=== PATIENT | male | born 1950 ===

== ENCOUNTER 2024-04-28 09:32 | Inpatient (IN) | payer MEDICARE, MEDICAID ==
[~2024-04-28] VITALS: Ht 180.3 cm; Wt 63.6 kg
[2024-04-28 11:07] LABS: BASOPHILS % (AUTO) 0.5 % (0.0-2.0); EOSINOPHILS % (AUTO) 2.8 % (1.0-6.0); HEMATOCRIT 32.9 % (41-53); HEMOGLOBIN 10.7 g/dL (13.5-17.5); LYMPHOCYTES # (AUTO) 0.5 K/uL (1.0-4.8); LYMPHOCYTES % (AUTO) 8.2 % (22.0-44.0); MEAN CORPUSCULAR HEMOGLOBIN 30.8 pg (26.0-34.0); MEAN CORPUSCULAR HGB CONC 32.5 G/dL (31.0-37.0); MEAN CORPUSCULAR VOLUME 95 fL (80-100); MONOCYTES # (AUTO) 0.5 K/uL (0.1-1.0); MONOCYTES % (AUTO) 7.6 % (2.0-9.0); NEUTROPHILS # (AUTO) 4.9 K/uL (1.8-7.7); NEUTROPHILS % (AUTO) 80.9 % (40.0-70.0); PLATELET COUNT (AUTO) 243 K/uL (150-450); RED BLOOD CELL COUNT(AUTO) 3.48 MIL/uL (4.50-5.90); RED CELL DISTRIBUTION WIDTH 15.5 % (11.5-14.5); WHITE BLOOD COUNT (AUTO) 6.1 K/uL (4.5-11.0)
[2024-04-28 11:08] LABS: CALCIUM, TOTAL 9.9 mg/dL (8.8-10.5); CREATININE 2.12 mg/dL (0.60-1.30); POTASSIUM 5.3 mmol/L (3.5-5.1)
[2024-04-28 11:22] LABS: ALBUMIN 3.1 g/dL (3.4-5.0); BILIRUBIN,DIRECT 0.1 mg/dL (0.00-0.20); BILIRUBIN,TOTAL 0.5 mg/dL (0.1-1.0); TOTAL PROTEIN, SERUM 6.8 g/dL (6.4-8.2)
[2024-04-28 11:22] LABS: APPEARANCE,URINE TURBID (CLEAR); BILIRUBIN,URINE NEGATIVE (NEGATIVE); COLOR,URINE YELLOW (YELLOW); GLUCOSE, URINE (UA) 150-200 mg/dL (NEGATIVE); KETONES,URINE NEGATIVE (NEGATIVE); LEUKOCYTE ESTERASE ,URINE LARGE (NEGATIVE); NITRATE,URINE POSITIVE (NEGATIVE); OCCULT BLOOD,URINE LARGE (NEGATIVE); PH,URINE 8.5 (5.0-8.0); PROTEIN,URINE 100-200,SEE CONFIRM mg/dL (NEGATIVE); SPECIFIC GRAVITIY, URINE 1.012 (1.003-1.030); UROBILINOGEN,URINE <=1.0 mg/dL (<=1.0)
[2024-04-28 12:01] LABS: SULFOSALICYLIC ACID,URINE 2+ (Negative)
[2024-04-28 12:02] LABS: BACTERIA,URINE Many /HPF (None Seen); RBC,URINE >100 /HPF (0-2); TRIPLE PHOSPHATE CRYSTAL,UR Many /LPF (None Seen); WBC,URINE 26-50 /HPF (0-5)
[2024-04-28] MEDS: CefTRIAXone 1 GM/DEXTROSE 50 ML IV ONE (12:25)
[2024-04-28] MEDS: DiphenhydrAMINE HCL 50 MG/ML VIAL IVP ONE (13:08)
[2024-04-28] MEDS ORDERED: ACETAMINOPHEN 325 MG TABLET PO PRN (14:30)
[2024-04-28] MEDS ORDERED: MAGNESIUM HYDROXIDE SUSPENSION 30 ML UDCUP PO PRN (14:30)
[2024-04-28] MEDS ORDERED: ONDANSETRON HCL 4 MG/2 ML VIAL IVP PRN (14:30)
[2024-04-28] MEDS ORDERED: BISACODYL 10 MG RECTAL RECTAL SUPPOSITORY PR PRN (14:30)
[2024-04-28] MEDS ORDERED: DEXTROSE 50%-WATER 25 GM/50 ML SYRINGE IVP PRN (14:45)
[2024-04-28] MEDS: HEPARIN SODIUM,PORCINE 5,000 UNITS/ML VIAL SQ SCH (15:28)
[2024-04-28 18:14] VITALS: BP 157/93; PULSE 73; RESP 20; TEMP 99.1; O2SAT 99
[2024-04-28 18:25] VITALS: BP 157/93; PULSE 73; RESP 20; TEMP 99.1; O2SAT 99
[2024-04-28 19:24] VITALS: BP 132/64; PULSE 74; RESP 20; TEMP 98.5; O2SAT 97
[2024-04-28] MEDS: DOCUSATE SODIUM 100 MG CAPSULE PO SCH (20:39)
[2024-04-28] MEDS: INSULIN LISPRO 100 UNITS/ML SQ PRN (20:43)
[2024-04-28 21:00] LABS: GLUCOMETER DEV NAME(LOC) 6S.2; GLUCOSE,POINT OF CARE 223 MG/DL (70-110)
[2024-04-29 03:06] VITALS: BP 136/79; PULSE 73; RESP 18; TEMP 98.3; O2SAT 97
[2024-04-29 06:46] LABS: BASOPHILS % (AUTO) 0.2 % (0.0-2.0); EOSINOPHILS % (AUTO) 11.3 % (1.0-6.0); HEMATOCRIT 33.2 % (41-53); LYMPHOCYTES # (AUTO) 1.7 K/uL (1.0-4.8); LYMPHOCYTES % (AUTO) 25.5 % (22.0-44.0); MEAN CORPUSCULAR HEMOGLOBIN 31.4 pg (26.0-34.0); MEAN CORPUSCULAR VOLUME 95 fL (80-100); MONOCYTES # (AUTO) 0.8 K/uL (0.1-1.0); MONOCYTES % (AUTO) 11.4 % (2.0-9.0); NEUTROPHILS # (AUTO) 3.5 K/uL (1.8-7.7); NEUTROPHILS % (AUTO) 51.6 % (40.0-70.0); PLATELET COUNT (AUTO) 224 K/uL (150-450); RED CELL DISTRIBUTION WIDTH 15.9 % (11.5-14.5); WHITE BLOOD COUNT (AUTO) 6.8 K/uL (4.5-11.0)
[2024-04-29 06:55] LABS: GLUCOMETER DEV NAME(LOC) 6S.2; GLUCOSE,POINT OF CARE 181 MG/DL (70-110)
[2024-04-29 07:01] LABS: CALCIUM, TOTAL 9.2 mg/dL (8.8-10.5); CREATININE 1.67 mg/dL (0.60-1.30)
[2024-04-29 08:05] VITALS: BP 144/83; PULSE 82; RESP 19; TEMP 98.4; O2SAT 98
[2024-04-29] MEDS: PANTOPRAZOLE SODIUM 40 MG DR TABLET PO SCH (08:27)
[2024-04-29] MEDS ORDERED: CefTRIAXone 1 GM/DEXTROSE 50 ML IV SCH (12:00)
[2024-04-29] MEDS: INSULIN GLARGINE,HUM.REC.ANLOG 100 UNITS/ML SQ SCH (12:15)
[2024-04-29 13:15] LABS: GLUCOMETER DEV NAME(LOC) 6S.2; GLUCOSE,POINT OF CARE 186 MG/DL (70-110)
[2024-04-29] MEDS: CefTAZidime PENTAHYDRATE 1 GM in DEXTROSE 5%-WATER 50 ML IV SCH (13:19)
[2024-04-29] MEDS: AMPICILLIN SODIUM 1 GM/NS 50 ML IV SCH (14:32)
[2024-04-29 16:15] VITALS: BP 138/78; PULSE 78; RESP 18; TEMP 98.2; O2SAT 98
[2024-04-29 19:52] VITALS: BP 122/72; PULSE 69; RESP 18; TEMP 98.7; O2SAT 97
[2024-04-29] MEDS: ZOLPIDEM TARTRATE 5 MG TABLET PO PRN (22:05)
[2024-04-30 00:26] LABS: GLUCOMETER DEV NAME(LOC) 6S.2; GLUCOSE,POINT OF CARE 186 MG/DL (70-110)
[2024-04-30 00:26] LABS: GLUCOMETER DEV NAME(LOC) 6S.2; GLUCOSE,POINT OF CARE 141 MG/DL (70-110)
[2024-04-30 03:37] VITALS: BP 146/80; PULSE 71; RESP 18; TEMP 98.2; O2SAT 97
[2024-04-30 07:52] LABS: BASOPHILS % (AUTO) 0.5 % (0.0-2.0); EOSINOPHILS % (AUTO) 10.4 % (1.0-6.0); HEMOGLOBIN 13.4 g/dL (13.5-17.5); LYMPHOCYTES # (AUTO) 2.1 K/uL (1.0-4.8); LYMPHOCYTES % (AUTO) 31.3 % (22.0-44.0); MEAN CORPUSCULAR HGB CONC 32.6 G/dL (31.0-37.0); MEAN CORPUSCULAR VOLUME 95 fL (80-100); MONOCYTES # (AUTO) 0.7 K/uL (0.1-1.0); MONOCYTES % (AUTO) 11.3 % (2.0-9.0); NEUTROPHILS # (AUTO) 3.1 K/uL (1.8-7.7); NEUTROPHILS % (AUTO) 46.5 % (40.0-70.0); PLATELET COUNT (AUTO) 299 K/uL (150-450); RED BLOOD CELL COUNT(AUTO) 4.31 MIL/uL (4.50-5.90); RED CELL DISTRIBUTION WIDTH 15.4 % (11.5-14.5); WHITE BLOOD COUNT (AUTO) 6.6 K/uL (4.5-11.0)
[2024-04-30 08:05] LABS: CALCIUM, TOTAL 9.8 mg/dL (8.8-10.5); CREATININE 1.85 mg/dL (0.60-1.30); POTASSIUM 3.9 mmol/L (3.5-5.1)
[2024-04-30 09:15] LABS: GLUCOMETER DEV NAME(LOC) 6S.2; GLUCOSE,POINT OF CARE 241 MG/DL (70-110)
[2024-04-30 12:01] LABS: GLUCOMETER DEV NAME(LOC) 6S.2; GLUCOSE,POINT OF CARE 152 MG/DL (70-110)
[2024-04-30 12:01] LABS: GLUCOMETER DEV NAME(LOC) 6S.2; GLUCOSE,POINT OF CARE 202 MG/DL (70-110)
[2024-04-30 19:26] LABS: GLUCOMETER DEV NAME(LOC) 6S.2; GLUCOSE,POINT OF CARE 193 MG/DL (70-110)
[2024-04-30 20:30] VITALS: BP 163/88; PULSE 68; RESP 17; TEMP 98.2; O2SAT 97
[2024-04-30 21:15] VITALS: BP 167/90; PULSE 68
[2024-04-30] MEDS: MELATONIN 3 MG TABLET PO SCH (21:17)
[2024-04-30 21:31] LABS: GLUCOMETER DEV NAME(LOC) 6S.2; GLUCOSE,POINT OF CARE 141 MG/DL (70-110)
[2024-04-30 21:31] LABS: GLUCOMETER DEV NAME(LOC) 6S.2; GLUCOSE,POINT OF CARE 138 MG/DL (70-110)
[2024-04-30] MEDS: AmLODIPine BESYLATE 5 MG TABLET PO ONE (23:12)
[2024-05-01 00:45] VITALS: BP 167/84; PULSE 63; RESP 18; TEMP 97.9; O2SAT 97
[2024-05-01 04:00] VITALS: BP 161/95; PULSE 68; RESP 18; TEMP 97.8; O2SAT 100
[2024-05-01 06:56] LABS: GLUCOMETER DEV NAME(LOC) 6S.2; GLUCOSE,POINT OF CARE 190 MG/DL (70-110)
[2024-05-01 07:18] VITALS: BP 158/94; PULSE 70; RESP 18; TEMP 97.6; O2SAT 99
[2024-05-01 08:37] LABS: BASOPHILS % (AUTO) 0.8 % (0.0-2.0); EOSINOPHILS % (AUTO) 9.1 % (1.0-6.0); HEMATOCRIT 37.4 % (41-53); HEMOGLOBIN 12.1 g/dL (13.5-17.5); MEAN CORPUSCULAR HEMOGLOBIN 30.6 pg (26.0-34.0); MEAN CORPUSCULAR HGB CONC 32.3 G/dL (31.0-37.0); MEAN CORPUSCULAR VOLUME 95 fL (80-100); MONOCYTES # (AUTO) 0.7 K/uL (0.1-1.0); MONOCYTES % (AUTO) 10.6 % (2.0-9.0); NEUTROPHILS % (AUTO) 47.5 % (40.0-70.0); PLATELET COUNT (AUTO) 280 K/uL (150-450); RED BLOOD CELL COUNT(AUTO) 3.95 MIL/uL (4.50-5.90); RED CELL DISTRIBUTION WIDTH 15.3 % (11.5-14.5); WHITE BLOOD COUNT (AUTO) 6.4 K/uL (4.5-11.0)
[2024-05-01] MEDS: MORPHINE SULFATE 2 MG/ML SYRINGE IVP PRN (09:00)
[2024-05-01] MEDS: AmLODIPine BESYLATE 5 MG TABLET PO SCH (09:01)
[2024-05-01 09:03] LABS: CALCIUM, TOTAL 9.8 mg/dL (8.8-10.5); CREATININE 1.92 mg/dL (0.60-1.30); POTASSIUM 3.9 mmol/L (3.5-5.1)
[2024-05-01 13:00] LABS: GLUCOMETER DEV NAME(LOC) 6S.2; GLUCOSE,POINT OF CARE 167 MG/DL (70-110)
[2024-05-01 15:25] VITALS: BP 169/80; PULSE 67; RESP 20; TEMP 98.2; O2SAT 94
[2024-05-01] MEDS ORDERED: SODIUM CHLORIDE 0.9% 500 ML IV ONE (16:15)
[2024-05-01 20:01] VITALS: BP 144/84; PULSE 75; RESP 18; TEMP 98.1; O2SAT 97
[2024-05-01] MEDS: HYDROCODONE/ACETAMINOPHEN 5-325 MG TABLET PO PRN (21:33)
[2024-05-02 04:40] VITALS: BP 148/71; PULSE 65; RESP 20; TEMP 97.8; O2SAT 95
[2024-05-02 04:51] LABS: GLUCOMETER DEV NAME(LOC) 6S.2; GLUCOSE,POINT OF CARE 173 MG/DL (70-110)
[2024-05-02 04:51] LABS: GLUCOMETER DEV NAME(LOC) 6S.2; GLUCOSE,POINT OF CARE 134 MG/DL (70-110)
[2024-05-02 06:56] LABS: GLUCOMETER DEV NAME(LOC) 6S.2; GLUCOSE,POINT OF CARE 177 MG/DL (70-110)
[2024-05-02 07:43] VITALS: BP 112/60; PULSE 62; RESP 18; TEMP 97.7; O2SAT 100
[2024-05-02] MEDS ORDERED: MELA3TAB89 PO (10:32)
[2024-05-02] MEDS ORDERED: AMLO-257 PO (10:32)
[2024-05-02] MEDS ORDERED: AMOX-457 PO (10:35)
[2024-05-02 12:20] LABS: GLUCOMETER DEV NAME(LOC) 6S.2; GLUCOSE,POINT OF CARE 241 MG/DL (70-110)
[2024-05-02 12:30] LABS: CALCIUM, TOTAL 9.2 mg/dL (8.8-10.5); CREATININE 1.94 mg/dL (0.60-1.30); POTASSIUM 4.8 mmol/L (3.5-5.1)
[2024-05-02] MEDS ORDERED: LINA5TAB PO (13:16)
[2024-05-02 15:55] VITALS: BP 148/86; PULSE 72; RESP 20; TEMP 98.2; O2SAT 96
== END 2024-05-02 16:45 | disposition home health service (06) | DRG 698 ==
LOC: EMS 09:32 → EDH 11:48 → 6S 17:07
PROVIDERS: ADMIT Internal Medicine; ATTEND Internal Medicine
DX: T83.511A Infection and inflammatory reaction due to indwelling urethral catheter, initial encounter (principal); E43 Unspecified severe protein-calorie malnutrition; N17.0 Acute kidney failure with tubular necrosis; N18.4 Chronic kidney disease, stage 4 (severe); Z16.24 Resistance to multiple antibiotics; Z68.1 Body mass index [BMI] 19.9 or less, adult; Y84.6 Urinary catheterization as the cause of abnormal reaction of the patient, or of later complication, without mention of misadventure at the time of the procedure; N39.0 Urinary tract infection, site not specified; E87.6 Hypokalemia; D63.8 Anemia in other chronic diseases classified elsewhere; E11.65 Type 2 diabetes mellitus with hyperglycemia; K80.20 Calculus of gallbladder without cholecystitis without obstruction; B96.4 Proteus (mirabilis) (morganii) as the cause of diseases classified elsewhere; I12.9 Hypertensive chronic kidney disease with stage 1 through stage 4 chronic kidney disease, or unspecified chronic kidney disease; E11.22 Type 2 diabetes mellitus with diabetic chronic kidney disease; Y92.89 Other specified places as the place of occurrence of the external cause; Z88.8 Allergy status to other drugs, medicaments and biological substances; Z85.46 Personal history of malignant neoplasm of prostate
CPT/HCPCS: 76700; 80048; 80076; 81001; 81002; 82962; 83690; 85025; 87081; 87086; 87186; 97162; 97165; 97535; 99285; J0290; J0696; J0713; J1200; J1644; J1815; J2270; J7060